=== PATIENT | female | born 1970 | race Caucasian/White ===

== ENCOUNTER 2017-06-14 15:44 | Emergency (ER) | payer OTHER, SELFPAY ==
[2017-06-14 15:45] VITALS: BP 115/77; PULSE 70; RESP 18; TEMP 37.1; O2SAT 100; BMI 22.4
--- NOTE | 2017-06-14 16:51 | CT_ITS ---
CT Abdomen And Pelvis W/O Contrast INDICATION: LBP-RT THIGH PAIN, RLQ PAIN, HX-OVARIAN CYSTS COMPARISON: None TECHNIQUE: Axial CT imaging of the abdomen and pelvis without contrast. Coronal and sagittal reformatted images. Radiation dose optimization technique applied. FINDINGS: Visualized lung bases are clear. The heart size is normal. A small pericardial effusion is present. The liver contains a small hypodense lesion in the left hepatic lobe, likely a small cyst. Liver and spleen are normal in size. The kidneys are without evidence of nephrolithiasis or hydronephrosis. The urinary bladder is physiologically distended. The bowel loops are nondistended. The appendix is unremarkable. A 6.4 cm cystic structure is noted in the right pelvis, presumably associated with the right ovary. No evidence of free air or free fluid. The osseous structures are grossly unremarkable. CT/Abdomen/Pelvis without Cont IMPRESSION: Normal appendix. 6.4 cm right pelvic cyst, possibly ovarian, consider further evaluation with pelvic ultrasound. Small pericardial effusion. at 1838 Reported and signed by: Lary Iyer MD Electronically Signed: Lary Iyer MD at 17:36 EDT Tel , Service support ,
[2017-06-14] MEDS: 0.9% Normal Saline 1,000 ML 1000 ML IV (17:12)
[2017-06-14 17:22] LABS: Bacteria 0 SEEN /hpf (None Seen); Mucous, Urine 0 SEEN /hpf (<or=2+); White Blood Cells 0 SEEN /hpf (0-5)
[2017-06-14 17:29] LABS: Absolute Lymphocyte Count 1.45 X10^3/ul (0.83-4.51); Absolute Neutrophil Count 3.4 X10^3/uL (2.0-7.7); Basophil# 0.01 X10^3/uL; Basophil% 0.2 % (0-1); Eosinophil# 0.05 X10^3/uL; Eosinophils% 0.9 % (0-5); Hematocrit 42.3 % (37-47); Hemoglobin 14.2 g/dl (12.0-15.0); Lymphocyte # 1.45 X10^3/ul (4.0); Lymphocyte % 27.4 % (19-41); Mean Corp Hgb Conc 33.6 g/gl (32-36); Mean Corpuscular Hgb 32.2 pg (27.0-32.0); Mean Corpuscular Volume 95.9 fL (81-99); Mean Platelet Vol. 11.7 fl (6.2-12.0); Monocyte# 0.35 X10^3/uL; Monocyte% 6.6 % (0-10); Neutrophil # 3.43 X10^3/uL (2.7-7.7); Neutrophil % 64.7 % (47-70); Platelet Count 183 K/mm3 (150-450); RBC Distribution Width CV 11.7 % (11.6-14.6); RBC Distribution Width SD 40.3 fl (35.1-43.9); Red Blood Count 4.41 M/mm3 (4.2-5.4); White Blood Count 5.3 K/mm3 (4.4-11.0)
[2017-06-14 17:30] LABS: Color, Urine Yellow (Yellow); Glucose, Dipstick Normal (Normal); Ketone-Dipstick Negative (Negative); Leukocyte Esterase-Dipstick Negative /ul (Negative); Nitrite-Dipstick Negative (Negative); Occult Blood-Urine 10 /ul (Negative); Protein-Dipstick Negative (Negative); Specific Gravity, Urine 1.015 (1.002-1.030); Urine Bilirubin Dipstick Negative (Negative); Urine Clarity Clear (Clear); Urine Urobilinogen Normal (Normal)
[2017-06-14 17:38] LABS: Red Blood Cells-Urine > 100 SEEN /hpf (0-5); Squamous Epithelial Cells - UA 0-5 SEEN /hpf (5-10); Transitional Epithelial - Ur 0-5 SEEN /hpf (0-5)
[2017-06-14 17:44] LABS: ALB/GLOB Ratio 1.1 RATIO (0.9-2.4); AST(SGOT) 12 U/L (15-37); Alanine Aminotransfer ALT/SGPT 19 U/L (13-56); Albumin, Serum 4.2 g/dL (3.2-5.0); Alkaline Phosphatase 60 U/L (45-117); Anion Gap 7 (5-15); BUN 20 mg/dL (7-18); BUN/Creat Ratio 23.1 RATIO (10-20); Calcium,Total 8.6 mg/dL (8.5-10.1); Chloride 104 mmol/L (98-107); Creatinine, Serum 0.86 mg/dL (0.55-1.02); EST Glomerular Filtration Rate 74 mL/min (>60); Est Glom Filt Rate - Afr Amer 90 mL/min (>60); Estimated Creatinine Clearance 74.08 ml/min; Globulin 3.7 g/dL (2.2-4.2); Glucose 78 mg/dL (74-106); Lipase 133 U/L (73-393); POSITIVE COUNT NO; POSITIVE DIFFERENTIAL NO; POSITIVE MORPHOLOGY NO; Potassium 4.1 mmol/L (3.5-5.1); Protein, Total 7.9 g/dL (6.4-8.2); Sodium Level 139 mmol/L (136-145)
[2017-06-14 18:00] LABS: Pregnancy, Serum, hCG Quali. NEGATIVE Negative (0-9 Nonpreg)
--- NOTE | 2017-06-14 18:07 | ED.VISSUMM ---
- ER Visit Summary Date of Service: 06/14/17 Chief Complaint: Abdominal pain History of Present Illness: The patient is a 47 F who presents for 2 days of intermittent abdominal pain. Patient has been having right lower quadrant and right flank pain that started 2 nights ago. Since yesterday it is been constant, waxing and waning in intensity. She has tried Advil with minimal relief. She endorses nausea but denies vomiting, diarrhea or constipation. She has associated suprapubic pressure. She was seen at urgent care and referred here for further evaluation. Denies any medical history. No history of abdominal surgeries. Physical Examination: Vital signs: afebrile, hemodynamically stable, no hypoxia on room air General: well nourished, well developed, in no distress Skin: warm, dry, no rash, no pallor HEENT: normocephalic and atraumatic; PERRL, EOMI, moist mucous membranes Cardiovascular: regular rate and rhythm without murmurs, no peripheral edema, 2+ pulses all distal extremities Respiratory: No increased work of breathing, lungs are clear to auscultation bilaterally, no rales, rhonchi or wheezing Abdominal: Abdomen is soft, tenderness in the right lower quadrant and suprapubic region with normoactive bowel sounds, no guarding or rebound, no masses no CVA tenderness MSK: Moves all extremities, no deformities, normal strength Neuro: Awake and alert, oriented ?4. No facial droop, sensation and motor function intact and symmetric Test Results: Abnormal Lab Results 06/14/17 06/14/17 06/14/17 17:16 17:16 17:16 WBC 5.3 RBC 4.41 Hgb 14.2 Hct 42.3 MCV 95.9 MCH 32.2 H MCHC 33.6 RDW 11.7 RDW Differential 40.3 Plt Count 183 MPV 11.7 Immature Gran % (Auto) 0.200 Neut % (Auto) 64.7 Lymph % (Auto) 27.4 [place] % (Auto) 6.6 Eos % (Auto) 0.9 Baso % (Auto) 0.2 Absolute Neuts (auto) 3.4 Absolute Lymphs (auto) 1.45 Total Counted Not Reportable Sodium 139 Potassium 4.1 Chloride 104 Carbon Dioxide 28.0 Anion Gap 7 BUN 20 H Creatinine 0.86 Estim Creat Clear Calc 74.08 Est GFR (MDRD) Af Amer 90 Est GFR (MDRD) Non-Af 74 BUN/Creatinine Ratio 23.1 H Glucose 78 Calcium 8.6 Total Bilirubin 0.90 AST 12 L ALT 19 Alkaline Phosphatase 60 Total Protein 7.9 Albumin 4.2 Globulin 3.7 Albumin/Globulin Ratio 1.1 Lipase 133 Serum , Qual NEGATIVE Urine Color Urine Clarity Urine pH Ur Specific [place] Urine Protein Urine Glucose (UA) Urine Ketones Urine Occult Blood Urine Nitrite Urine Bilirubin Urine Urobilinogen Ur Leukocyte Esterase Urine RBC Urine WBC Ur Squamous Epith Cells Ur Transition Epith Cell Urine Bacteria Urine Mucus 06/14/17 17:16 WBC RBC Hgb Hct MCV MCH MCHC RDW RDW Differential Plt Count MPV Immature Gran % (Auto) Neut % (Auto) Lymph % (Auto) [place] % (Auto) Eos % (Auto) Baso % (Auto) Absolute Neuts (auto) Absolute Lymphs (auto) Total Counted Sodium Potassium Chloride Carbon Dioxide Anion Gap BUN Creatinine Estim Creat Clear Calc Est GFR (MDRD) Af Amer Est GFR (MDRD) Non-Af BUN/Creatinine Ratio Glucose Calcium Total Bilirubin AST ALT Alkaline Phosphatase Total Protein Albumin Globulin Albumin/Globulin Ratio Lipase Serum , Qual Urine Color Yellow Urine Clarity Clear Urine pH 6.0 Ur Specific [place] 1.015 Urine Protein Negative Urine Glucose (UA) Normal Urine Ketones Negative Urine Occult Blood 10 H Urine Nitrite Negative Urine Bilirubin Negative Urine Urobilinogen Normal Ur Leukocyte Esterase Negative Urine RBC > 100 SEEN Urine WBC 0 SEEN Ur Squamous Epith Cells 0-5 SEEN Ur Transition Epith Cell 0-5 SEEN Urine Bacteria 0 SEEN Urine Mucus 0 SEEN Emergency Department Course and Treatment: Patient was offered and declined pain and nausea medication. She states her symptoms are actually improved from the earlier severe symptoms today. Differential includes kidney stone, appendicitis, ovarian torsion, UTI, among other intra-abdominal pathology. Labs showed no leukocytosis, no renal dysfunction, normal hepatic function and lipase. Urine was positive for hematuria and negative for infection. negative. CT of the abdomen and pelvis was performed that showed a large 6.4 cm cyst on the right ovary. No other intra-abdominal pathology noted. Because of this large cyst in the concern for torsion, a pelvic ultrasound was then performed. It showed no evidence of torsion but did show a simple cyst. Patient was discussed with Dr. Brown, who did not think that this is suspicious for intermittent torsion and that normally a simple cyst of this size would not result in torsion. Patient is to follow-up with her for reevaluation of the cyst. Patient was given a prescription for [place] for severe pain and will continue to use Advil for mild to moderate pain. We discussed return precautions if she begins having the intense severe pain again and will return for another evaluation if this does occur. She agreed with this plan was discharged home. Treatment Plan: [] Disposition: [] Impression: Right simple ovarian cyst This note was generated with [employer] dictation software. It may contain incorrect words, spelling, and punctuation that were not noted in review of the chart prior to signing ED Disposition - Plan for ED Patient: Disposition: Home or Assisted Living Chief Complaint: Abd Pain Instructions: ED Cyst Ovarian Prescriptions: Hydrocodone Bitart/Apap 5-325 [[place] 5/325] 1 tab PO Q6H PRN PRN 3 Days #10 tab PRN Reason: Pain Referrals: Ginger Leal MD [STAFF PHYSICIAN] - 3-5 Days if not improving Jayson Zimmer III, MD [Primary Care Provider] - Additional Instructions: Please follow-up with your artificial intelligence specialist in 1 month for another evaluation, or sooner if you continue to have intermittent pelvic pain. Please continue using Advil as needed for pain. You may use the [place] for severe pain, however if you are having severe pain please return to the emergency department for another evaluation.
--- NOTE | 2017-06-14 18:46 | US_ITS ---
US Transvaginal Non-OB INDICATION: PELVIC PAIN AND ABN CT COMPARISON: None TECHNIQUE: Ultrasonographic grayscale, Doppler and duplex investigation of the pelvic structures by a transvaginal approach FINDINGS: The uterus is anteverted and measures 7 x 3.5 x 2.8 cm. Endometrial stripe is homogeneous and measures 3 mm. Myometrium is homogeneous. The left ovary is unremarkable with normal follicular anatomy and normal flow. The right ovary contains a 6.2 cm cyst, which appears simple. Flow is seen to the adjacent right ovary. There is no evidence of free fluid in the cul-de-sac. US/Transvaginal Non- IMPRESSION: 6.2 cm right ovarian cyst, appears simple. Follow-up in 2-3 cycles is recommended to confirm stability or resolution. at 2014 Reported and signed by: Lary Iyer MD Electronically Signed: Lary Iyer MD at 19:12 EDT Tel , Service support ,
[2017-06-14 19:50] VITALS: BP 110/63; PULSE 59; RESP 16; O2SAT 100
--- NOTE | 2017-06-14 20:37 | ED.DEP ---
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 Please continue using Advil as needed for pain. You may use the [place] for severe pain, however if you are having severe pain please return to the emergency department for another evaluation.
--- NOTE | 2017-06-14 20:43 | DCINST.ED_ITS ---
ED Disposition - Plan for ED Patient: Disposition: Home or Assisted Living Chief Complaint: Abd Pain Instructions: ED Cyst Ovarian Prescriptions: Hydrocodone Bitart/Apap 5-325 [[place] 5/325] 1 tab PO Q6H PRN PRN 3 Days #10 tab PRN Reason: Pain Referrals: Jayson Zimmer III, MD [Primary Care Provider] - Ginger Leal MD [STAFF PHYSICIAN] - 3-5 Days if not improving Additional Instructions: Please follow-up with your protohistorian in 1 month for another evaluation, or sooner if you continue to have intermittent pelvic pain. Please continue using Advil as needed for pain. You may use the [place] for severe pain, however if you are having severe pain please return to the emergency department for another evaluation.
[2017-06-14] MEDS: HYDROcodone Bitartrate/Apap 5/325 Tablet PO (20:50)
[2017-06-14 20:54] VITALS: BP 100/77; PULSE 56; RESP 17; O2SAT 99
--- NOTE | 2017-06-14 20:54 | ED.RN ---
IV DC'ED, CATHETER INTACT, SMALL GAUZE DRESSING PLACED. DISCHARGE INSTRUCTIONS GIVEN TO AND REVIEWED WITH PATIENT, PATIENT DENIES QUESTIONS OR CONCERNS AND VOICES UNDERSTANDING OF DISCHARGE INSTRUCTIONS. PT AMBULATES OUT OF ROOM WITHOUT DIFFICULTY.
== END 2017-06-14 20:55 | disposition home or self-care (01) ==
PROVIDERS: Emergency Provider Emergency Medicine; Family Provider Family Medicine; PCP Family Medicine
DX: N83.291 Other ovarian cyst, right side (principal); R10.31 Right lower quadrant pain; R11.0 Nausea
CPT/HCPCS: 74176; 76830; 80053; 81001; 83690; 84703; 85025; 93976; 96360; 96361; 99284; J7030; A4216

== ENCOUNTER 2017-06-15 09:43 | Observation (INO) | payer OTHER, SELFPAY ==
[2017-06-15 09:44] VITALS: BP 120/78; PULSE 70; RESP 16; TEMP 36.8; O2SAT 100; BMI 22.6
--- NOTE | 2017-06-15 09:49 | US_ITS ---
STUDY: ULTRASOUND OF THE FEMALE PELVIS - COMPLETE REASON FOR EXAM: Female, 47 years old. 4 day history of pelvic pain. LMP: May 06, 2017. TECHNIQUE: Transvaginal TECHNICAL QUALITY: Adequate. COMPARISON: Comparison is made with prior pelvic ultrasound dated June 14, 2017. FINDINGS: The uterus is anteverted and is in a midline position. The uterus measures 7.2 cm x 4.1 cm x 2.7 cm. There is a Nabothian cyst of the cervix. The endometrium measures 4.0 mm in thickness, and is hyperechoic. There is no demonstrated endometrial mass. There is no demonstrated myometrial mass. I.U.D. - The patient does not have an I.U.D. The right ovary is visualized. The right ovary measures 7.5 cm x 6.8 cm x 4.5 cm. Once again, there is evidence of a 6.9 cm x 6.2 cm x 4.0 cm simple cyst. Flow is seen to the right ovary. There is no visualized right adnexal mass or complex lesion. There is normal arterial and normal venous vascularity. The left ovary is visualized. The left ovary measures 2.1 cm x 2.3 cm x 3.1 cm. A dominant follicle is seen within it. This measures 1.1 cm x 1.3 cm x 1.3 cm. There is no visualized left adnexal mass or complex lesion. There is normal arterial and normal venous vascularity. There is minimal fluid in the cul-de-sac. The pre void volume of the bladder was 246 ml. Polycystic ovary disease: No. US/Transvaginal Non- IMPRESSION: Stable right ovarian cyst. Ovarian blood flow is seen bilaterally. Electronically Signed: Juan Gaitan MD at 11:22 EDT Tel [phone], Service support ,
[2017-06-15] MEDS: 0.9% Normal Saline 1,000 ML 1000 ML IV (09:58)
[2017-06-15] MEDS: Ondansetron 4 MG/2 ML Vial IV ×2 (09:58→18:32)
--- NOTE | 2017-06-15 10:24 | ED.DCSUM_ITS ---
- ER Visit Summary Date of Service: 06/15/17 Chief Complaint: Abdominal and back pain History of Present Illness: The patient is a [address] Baig and Dr. Jayson Zimmer III. She reports that she has pelvic pain that began yesterday. His sharp pain is 10 out of 10 at worst and 5 out of 10 currently. Is worsened by movement and relieved by remaining still. Reports it radiates into her lower back. Patient was seen in the emergency department yesterday and diagnosed with a 6 cm right ovarian cyst. States that she had a prescription for [place], but she has not filled it yet as the pharmacies were closed. Physical Examination: Vitals: Stable. Afebrile. General: Well-nourished and well-developed. Head: Normocephalic atraumatic. Neck: Supple, no lymphadenopathy. No JVD. Nontender. Cardiovascular: Regular rate and rhythm. No murmurs. Respiratory: No respiratory distress. Clear to auscultation bilaterally. Abdominal: Soft, mild right adnexal tenderness, nondistended, normal bowel sounds. No guarding, rebound, or peritoneal signs. Back: Moderate tenderness palpation over the lower lumbar spine and paraspinous muscular on the right only. Extremities: Nontender, no edema. Skin: Normal color, no rash. Neurologic: Alert and oriented ?3. Cranial nerves II through XII are intact. Normal strength and sensation. Psych: Normal affect. Test Results: Transvaginal ultrasound shows a stable 6.9 x 6.2 x 4.0 cm simple right ovarian cyst with positive flow. Emergency Department Course and Treatment: Patient had an IV placed. She was given morphine and Zofran IV. She rested comfortably for quite some time. She then had severe pain again. Treatment Plan: The patient was seen by Dr. Bowles in the emergency department. It is felt with her intermittent severe pain that she may have intermittent torsion and is going to be taken to the operating room. Disposition: Admitted in improved condition. Impression: 1. Right ovarian cyst. This note was generated with [email or web address] dictation software. It may contain incorrect words, spelling, and punctuation that were not noted in review of the chart prior to signing ED Disposition - Plan for ED Patient: Chief Complaint: Abd Pain Referrals: Jayson Zimmer III, MD [Primary Care Provider] -
[2017-06-15 13:09] LABS: AST(SGOT) 16 U/L (15-37); Alanine Aminotransfer ALT/SGPT 21 U/L (13-56); Albumin, Serum 3.9 g/dL (3.2-5.0); Alkaline Phosphatase 54 U/L (45-117); Bilirubin, Direct 0.22 mg/dL (0.00-0.30); Globulin 3.4 g/dL (2.2-4.2); Protein, Total 7.3 g/dL (6.4-8.2)
[2017-06-15] MEDS: Morphine 4 MG/ML Syringe IV (13:19)
[2017-06-15 14:18] VITALS: BP 113/61; PULSE 61; RESP 14; O2SAT 99
[2017-06-15] MEDS: HYDROmorphone 1 MG/ML Syringe IV ×3 (14:32→23:54)
[2017-06-15 14:47] VITALS: BMI 22.6
[2017-06-15 15:00] VITALS: BP 106/89; PULSE 68; RESP 14; O2SAT 97
[2017-06-15 15:37] VITALS: BMI 21.9
[2017-06-15 15:40] VITALS: BP 108/68; PULSE 60; RESP 16; TEMP 36.7; O2SAT 100
--- NOTE | 2017-06-15 17:49 | HP.PCM_ITS ---
History Date of Admission: 06/15/17 History of this : Patient presented to ED for 2nd day in a row with pelvic pain. Pain had worsened and reported radiation to her back. Any type of movement would make the pain worse. Being still would help the pain. At worst her pain was a 10/ 10. Currently she reports minimal pain & had dilaudid over 3 hours ago. Pertinent Past Medical History: PMH - Migraines Rosacea Seasonal allergies TMJ PSH - D&C FH - patient adopted SH - negative Allergies No Known Allergies Allergy (Verified 06/15/17 09:48) Current Medications Hydromorphone HCl (Dilaudid Iv) 1 mg IV Q3H PRN PRN PRN Reason: SEVERE PAIN (6-10/10) Sodium Chloride () 1,000 mls @ 150 mls/hr IV .Q6H40M OTILIA Magnesium Hydroxide (Milk Of Magnesia) 30 ml PO DAILY PRN PRN PRN Reason: Constipation Ondansetron HCl (Zofran) 4 mg IV Q8H PRN PRN PRN Reason: NAUSEA Promethazine HCl (Phenergan Iv) 12.5 mg IV Q6H PRN PRN PRN Reason: NAUSEA/VOMITING Smoking Status: Never smoker Alcohol: None Drug Use: none Review of Systems Constitutional: Denies: Chills, Fever, Weight Change Respiratory: Denies: Cough, Shortness of breath at rest, Sputum production Gastrointestinal: Denies: Abdominal Pain, Nausea, Vomiting Genitourinary: Reports: Urgency - & bladder pressure Neurological: Denies: Numbness, Tingling, Focal weakness Physical Exam Vitals: Vital Signs Temp Pulse Resp BP Pulse Ox 98.1 F 60 16 108/68 100 06/15/17 15:40 06/15/17 15:40 06/15/17 15:40 06/15/17 15:40 06/15/17 15:40 General: Alert, Oriented x3 Cardiovascular: Regular rate, Regular Rhythm Lungs: Clear to auscultation, Normal air movement Abdomen: Soft, Non Tender - patient was tender prior to dilaudid, Non-Distended Extremities:: No edema Assessment/Plan 47yo female with pelvic pain CT & pelvic US yesterday showed ovarian cyst. Repeat US today confirms cyst size stable & no evidence of torsion. Discussed R/B/A of management options and patient wishes to proceed with l/s right cystectomy, possible RSO. Patient considering bilateral salpingectomy. Plan for pain management overnight with dilaudid. GI - light dinner & then NPO at midnight. AM labs ordered. Plan discussed extensively with patient & her .
[2017-06-15] MEDS: 0.9% Normal Saline 1,000 ML 150 ML IV ×2 (17:57→23:55)
[2017-06-15] MEDS: proMETHazine 25 MG/ML Syringe 12.5 MG IV (19:41)
[2017-06-15 21:40] VITALS: BP 105/57; PULSE 57; RESP 16; TEMP 36.6; O2SAT 100
[2017-06-15 22:38] LABS: Internal QC Validated? YES +Cl - CLEAR BKGD; Pregnancy, Urine Negative Negative
[2017-06-15 22:43] VITALS: BMI 21.8
[2017-06-16] VITALS (11 sets, daily range): BP systolic 98–122; BP diastolic 54–107; PULSE 65–114; RESP 10–18; TEMP 36.7–37.8; O2SAT 92–99; BMI 21.8
[2017-06-16] MEDS: HYDROmorphone 1 MG/ML Syringe IV ×3 (04:02→14:46)
[2017-06-16 05:32] LABS: Absolute Lymphocyte Count 1.55 X10^3/ul (0.83-4.51); Absolute Neutrophil Count 3.3 X10^3/uL (2.0-7.7); Basophil# 0.02 X10^3/uL; Basophil% 0.4 % (0-1); Eosinophil# 0.06 X10^3/uL; Eosinophils% 1.1 % (0-5); Hematocrit 36.9 % (37-47); Hemoglobin 12.2 g/dl (12.0-15.0); Lymphocyte # 1.55 X10^3/ul (4.0); Lymphocyte % 28.7 % (19-41); Mean Corp Hgb Conc 33.1 g/gl (32-36); Mean Corpuscular Hgb 32.1 pg (27.0-32.0); Mean Corpuscular Volume 97.1 fL (81-99); Mean Platelet Vol. 11.5 fl (6.2-12.0); Monocyte# 0.44 X10^3/uL; Monocyte% 8.1 % (0-10); Neutrophil # 3.34 X10^3/uL (2.7-7.7); Neutrophil % 61.7 % (47-70); Platelet Count 163 K/mm3 (150-450); RBC Distribution Width CV 11.8 % (11.6-14.6); RBC Distribution Width SD 40.3 fl (35.1-43.9); White Blood Count 5.4 K/mm3 (4.4-11.0)
[2017-06-16 05:48] LABS: POSITIVE COUNT NO; POSITIVE DIFFERENTIAL NO; POSITIVE MORPHOLOGY NO
[2017-06-16] MEDS: 0.9% Normal Saline 1,000 ML 150 ML IV (06:22)
--- NOTE | 2017-06-16 06:59 | PCM.PN.OB ---
Subjective: Pain controlled with dilaudid. She had some nausea last night. - Physical Exam General: Alert, Oriented x3 Abdomen: Soft - minimall tenderness, Non-Distended Extremities: No Calf Tenderness Vital Signs Temp Pulse Resp BP Pulse Ox 98.0 F 70 18 105/63 99 06/16/17 03:40 06/16/17 03:40 06/16/17 03:40 06/16/17 03:40 06/16/17 03:40 Oxygen Delivery Method Room Air Weight: 136 lb 3.2 oz Body Mass Index (BMI) 21.9 Intake and Output for Last 24 Hours 06/14/17 06/15/17 06/16/17 23:59 23:59 23:59 Intake Total 120 / 120 2322 / 2322 Balance 120 / 120 2322 / 2322 Laboratory Tests Past 24 Hrs 06/15/17 06/16/17 06/16/17 22:05 05:00 05:00 WBC 5.4 RBC 3.80 L Hgb 12.2 Hct 36.9 L MCV 97.1 MCH 32.1 H MCHC 33.1 RDW 11.8 RDW Differential 40.3 Plt Count 163 MPV 11.5 Immature Gran % (Auto) 0.000 Neut % (Auto) 61.7 Lymph % (Auto) 28.7 [place] % (Auto) 8.1 Eos % (Auto) 1.1 Baso % (Auto) 0.4 Absolute Neuts (auto) 3.3 Absolute Lymphs (auto) 1.55 Total Counted Not Reportable Urine Test Negative Blood Type Pending Antibody Screen Pending Medical Necessity - Tobacco Use Smoking Status: Never smoker Assessment/Plan 47yo female with right ovarian cyst Plan for surgery today with Informed consent signed - R/B/A discussed & all questions answered
[2017-06-16] MEDS: 0.9% NaCl Peripheral Flush Adult/Peds IV ×3 (07:51→14:46)
[2017-06-16] MEDS: Acetaminophen 500 MG Tablet 1000 MG PO (07:52)
--- NOTE | 2017-06-16 08:46 | PCM.PN.OB ---
Subjective: pt seen at bedside, doing well. pt reports no pain at this time. - Physical Exam General: Alert, Oriented x3 Abdomen: Soft, Non Tender, Non-Distended, - - no rebound, no guarding Extremities: No Calf Tenderness Vital Signs Temp Pulse Resp BP Pulse Ox 98.3 F 65 16 98/59 L 96 06/16/17 08:36 06/16/17 08:36 06/16/17 08:36 06/16/17 08:36 06/16/17 08:36 Oxygen Delivery Method Room Air Weight: 61.7 kg Body Mass Index (BMI) 21.8 Intake and Output for Last 24 Hours 06/14/17 06/15/17 06/16/17 23:59 23:59 23:59 Intake Total 120 / 120 2322 / 2322 Balance 120 / 120 2322 / 2322 Laboratory Tests Past 24 Hrs 06/15/17 06/16/17 06/16/17 22:05 05:00 05:00 WBC 5.4 RBC 3.80 L Hgb 12.2 Hct 36.9 L MCV 97.1 MCH 32.1 H MCHC 33.1 RDW 11.8 RDW Differential 40.3 Plt Count 163 MPV 11.5 Immature Gran % (Auto) 0.000 Neut % (Auto) 61.7 Lymph % (Auto) 28.7 [place] % (Auto) 8.1 Eos % (Auto) 1.1 Baso % (Auto) 0.4 Absolute Neuts (auto) 3.3 Absolute Lymphs (auto) 1.55 Total Counted Not Reportable Urine Test Negative Blood Type O NEGATIVE Antibody Screen NEGATIVE Medical Necessity - Tobacco Use Smoking Status: Never smoker Assessment/Plan HD#1- 6cm right ovarian cyst with likely intermittent torsion 1) scheduled for Laparoscopic right ovarian cystectomy with possible Oophorecetomy. Bilateral salpingectomy reviewed with patient. pt counseled on risks of surgery and wishes to proceed 2) NPO
--- NOTE | 2017-06-16 09:05 | OV_PTH ---
PATIENT: CASSIE VÁZQUEZ LOC: MS2 U#:[id number] AGE/SX: 47/F [place]: [facility] [place]/15/[address]: Dr. Mansi Bowles MD : 1970 BED: 1 DIS: 06/16/2017 SPEC #: [id number] RECD: 06/16/17 13:21 STATUS: ROCHELLE HANNAH #: [id number] LEAH: 06/16/17 09:[address]: Ginger Leal DEPT: SURGICAL PATHOLOGY RECD BY: Phong Aguirre ENTERED: 06/16/17 13:58 SP TYPE: OVARY OTHR DR: MD Dr. Mansi Neff III, MD Tissues: Right ovary Procedures: Surgery Specimen Level V Comments: @ Ordering doctor for SUIV edited from to @ by FLORY at 06/17/17 0930 @ Submitting doctor edited from to @ by FLORY at 06/17/1730 HEADER OPERATION: Laparoscopic, ovarian cystectomy, right salpingo-oophorectomy PRE-OP DIAGNOSIS: Right ovarian cyst, abdominal pain TISSUE SUBMITTED: Right ovary and cyst, bilateral tubes MICROSCOPIC DIAGNOSIS Right ovary and cyst, bilateral fallopian tubes, right salpingo-oophorectomy and left salpingectomy: Right ovary ? simple serous cystadenoma (7 cm in greatest dimension). Bilateral fallopian tubes - no pathologic diagnosis. SJ:andrew 06/17/17 MICROSCOPIC DESCRIPTION Slides are reviewed. GROSS DESCRIPTION Received in fixative is one container labeled with the patient's name and designated right ovary cyst and fallopian tubes. The specimen consists of a smooth, glistening cystic structure measuring 7 x 6.5 x 2 cm and containing clear fluid. The external surface is smooth and glistening. No papillary projections are identified. Adjacent to this is a 7 cm segment of fallopian tube with an average diameter of 0.5 cm. The fimbriated end has a normal villous appearance. The inner cyst wall lining is also smooth and glistening without papillary projections or excrescences. Separate in the container is a portion of another fallopian tube measuring 7 cm in length and 0.5 cm in average diameter. Access Rep sections are submitted in four cassettes as follows: 1-3 ? fallopian tube with adjacent cystic structure, 4 ? separate fallopian tube. / AM:andrew 06/16/17 TC:1 CPT: 24815
[2017-06-16] MEDS: proMETHazine 25 MG/ML Syringe 12.5 MG IV (10:20)
--- NOTE | 2017-06-16 10:21 | PCA ---
Notified RN that pt is complaining of nausea. Informed pt that RN will be in to medicate her. No more needs.
--- NOTE | 2017-06-16 10:51 | NURSING ---
called report to Charity in [facility] at this time
--- NOTE | 2017-06-16 11:16 | NURSING ---
Patient transported to surgery at 1050
[2017-06-16] MEDS: Bupivacaine Mpf 0.5% 30 ML VIAL (12:18)
--- NOTE | 2017-06-16 12:48 | PCM.DC.TUB ---
Discharge Diet: No Restrictions, - - Increase fluid intake for 48 hours. Discharge Activity: Return to Normal Activity, May Drive - when you are no longer taking narcotic pain medications., May Shower, May Take a Tub Bath - in 7 days., - - Ambulate often the next week after surgery. May resume sexual activity in: 4 weeks Additional Activity Instructions:: Nothing in the vagina for the next 5 days. Call your doctor if your incision/area has: Continuous Slow Oozing, Sudden Increased Bleeding, Increased Pain/ Swelling, Increased Redness, Foul Smelling Discharge, Swelling at the incision site Call your doctor if you observe: Fever of 101 or Higher Cleanse incision/area with: Soap & Water, - - you have skin glue on your incision sites- do not pick off. Let soap and water run over incisions and dab dry. Allergies/Adverse Reactions: Allergies No Known Allergies Allergy (Verified 06/15/17 09:48) Medications to take at Discharge Fexofenadine HCl [Frances Allergy] 180 mg PO DAILY 06/14/17 Fluticasone Propionate 2 spray NASAL DAILY 06/14/17 Hydrocodone Bitart/Apap 5-325 [[place] 5/325] 1 tab PO Q6H PRN PRN 3 Days #10 tab 06/14/17 Primary Care Physician: Jayson Zimmer III, MD [Primary Care Provider] - Please Follow Up With: Ginger Leal MD When: 2 weeks post op [phone] call for appointment.
--- NOTE | 2017-06-16 12:58 | OP.PCM_ITS ---
Operative Report Date of Procedure: 06/16/17 Surgeon: Dr. Ginger Leal Wire Frame Dipper: ALLISON Mejia Preoperative diagnosis: , pelvic pain, Right ovarian cys Procedure performed: Laparoscopic Right Salpingoophorectomy with removal of ovarian cyst, Left Salpingectomy Postoperative diagnosis: same complications: none Estimated blood loss: 5 cc Drains: none Specimens collected: Bilateral tubes, right ovary and cyst Findings: large simple appearing right ovarian cyst that was approximately 7cm- in posterior CDS. removed without rupturing- placed in endocatch bag- ruptured with clear fluid. Operative note: After informed consent was obtained patient was taken to the operating room she was placed in supine position she was given anesthesia. She was then placed in the [facility] stirrups and she was prepped and draped in normal sterile fashion. Bladder was drained prior to the start of procedure approximately 100 cc of clear yellow urine was expelled. At this time attention was turned to the vaginal portion where weighted speculum placed at posterior fornix vagina single-tooth tenaculum was used to gently grasp the internal the cervix. uterus was gently sounded to approximately 7cm. Uterine manipulator was placed without difficulty. Legs then placed in parallel with the abdomen the tenaculum and the weighted speculum were removed. 2 towel clamps were placed superior to umbilicus. After Marcaine was injected superior to umbilicus a small incision was made and a 5 mm trocar was placed under direct visualization. CO2 gas was used to insufflate the intra-abdominal cavity. Upon inspection uterus and tubes appeared normal- could not see ovaries at this time. At this time then the LLQ port was placed again Marcaine was injected small incision was made a knife and the 5 mm trocar was placed and in the same fashion a RLQ port was placed. Ligasure was used to coagulate and ligate along IP ligament of right ovary, as well as mesosalpinx and uteroovarian ligament until specimen was freed. specimen placed in Posterior CDS and then the left but was traced to the fimbriated end and then coagulated along the mesosalpinx until tube removed completely. 10mm endocatch bag placed thru umbilical incision and specimens were placed in bag, brought to through and cyst was ruptured. the fascial incision was extended. the fascia was then reapproximated with 0 vicryl using evon shirley device- then a figure of 8 suture was placed on the fascial incision as good visualization was achieved. Good hemostasis was appreciated. At this time procedure was deemed complete successful. The gas was desufflated on from the intra-abdominal cavity. The trochars were removed. Skin was closed using 4-0 Monocryl in a subcutaneous fashion. Dermabond glue was placed. Instrument lap and needle counts were correct ?2. The uterine manipulator was removed. Vaginal sweep was performed it was negative. There were no complications anticipated normal postoperative course for this patient. specimens sent to pathology.
== END 2017-06-16 17:05 | disposition home or self-care (01) ==
LOC: ED 10:18 → MS2 15:03
PROVIDERS: Anesthesiology; Obstetrics & Gynecology; Admitting Provider Obstetrics & Gynecology; Emergency Provider Emergency Medicine; Family Provider Family Medicine; PCP Family Medicine; Visit Provider Obstetrics & Gynecology
PROC: (CPT 58661; principal; 2017-06-16 08:50)
DX: D27.0 Benign neoplasm of right ovary (principal)
CPT/HCPCS: 58661; 76830; 80076; 81025; 85025; 86850; 86900; 88305; 88307; 96361; 96374; 96375; 96376; 99218; 99284; J7030; J7120; A4216; G0378; J2405